=== PATIENT | female | born 1955 | race Caucasian/White ===

== ENCOUNTER 2018-11-04 14:05 | Inpatient (IN) | payer MEDICAID ==
[~2018-11-04] VITALS: Ht 167.6 cm; Wt 113.0 kg
[~2018-11-04 14:05] MED LIST: AMOX-422 PO; ARIP10TA8 PO; ASCO-134 PO; BENZ0.5T43 PO; BISA-78 PO; BUSP10TA11 PO; CALC-965 PO; CHOL2000 PO; CLON-528 PO; DULR RC; FENT1PAT7 TOP; HYDR-3686 PO; HYDR-3927 PO; IBUP-24 PO; IVER3TAB2 PO; LACT10SO PO; LAMO100T89 PO; LORA0.5T PO; LORA10TA7 PO; MAG400T PO; MULT1TAB74 PO; NEOM500T13 PO; PALI6TAB PO; POTA20TA19 PO; RIFA550T PO; SERT50TA10 PO; TAMO20TA4 PO; TEMA30CA5 PO; [UNRECOGNIZED DRUG - CODE] IM
[2018-11-04] MEDS ORDERED: normal saline 1000ML IV soln IVB ONE ×2 (14:45)
[2018-11-04] MEDS ORDERED: levoFLOXACIN-Levaquin 750MG/D5 150 ML IV ONE (14:45)
[2018-11-04] MEDS ORDERED: cefepime 1GM/NS ADD-VANTAGE 100 ML IV ONE (14:45)
[2018-11-04 15:48] LABS: ALANINE AMINOTRANSFERASE 42 U/L (12-78); ALBUMIN 2.1 G/DL (3.4-5.0); ALKALINE PHOSPHATASE 173 IU/L (46-116); ANION GAP 3 (8-16); CALCIUM 8.2 MG/DL (8.5-10.1); CHLORIDE 104 MMOL/L (99-107); CREATININE 0.99 MG/DL (0.40-0.90); SODIUM 137 MMOL/L (135-145); TOTAL CARBON DIOXIDE 29.9 MMOL/L (24-32); eGFR 56 ML/MIN
[2018-11-04 15:49] LABS: ALBUMIN/GLOBULIN RATIO 0.4 (1.1-1.5); ASPARTATE AMINO TRANSFERASE 77 U/L (10-37); BLOOD UREA NITROGEN 21 MG/DL (7-18); BUN/CREATININE RATIO 21.2 (6.6-38.0); GLUCOSE 139 MG/DL (70-104)
[2018-11-04 16:21] LABS: BASOPHILS % (AUTO) 0.2 % (0-1); EOSINOPHILS % (AUTO) 0.6 % (0-6); HEMATOCRIT 41.8 % (35.0-45.0); HEMOGLOBIN 14.7 g/dl (12.0-16.0); LYMPHOCYTES # (AUTO) 0.6 X10'3 (1.1-4.8); LYMPHOCYTES % (AUTO) 8.5 % (21-51); MEAN CORPUSCULAR HEMOGLOBIN 36.4 PG (27.0-31.0); MEAN CORPUSCULAR HGB CONC 35.2 g/dL (33.0-36.5); MEAN CORPUSCULAR VOLUME 103.5 FL (78-98); MEAN PLATELET VOLUME 8.9 FL (7.4-10.4); MONOCYTES # (AUTO) 0.5 X10'3 (0-0.9); MONOCYTES % (AUTO) 7.1 % (2-12); NEUTROPHILS # (AUTO) 5.8 X10'3 (1.8-7.7); NEUTROPHILS % (AUTO) 83.6 % (42-75); PLATELET COUNT 71 X10'3 (140-440); RED BLOOD COUNT 4.04 X10'6 (4.20-5.60); WHITE BLOOD COUNT 6.9 X10'3 (4.5-11.0)
[2018-11-04] MEDS ORDERED: mag hydrox/Alum hydrox/simeth 30ml oral suspension PO PRN (17:30)
[2018-11-04] MEDS ORDERED: ondansetron/PF 4mg/2ml inj IV PRN (17:30)
[2018-11-04] MEDS ORDERED: magnesium hydroxide 30ml (MOM) UD suspension PO PRN (17:30)
[2018-11-04] MEDS ORDERED: acetaminophen 325mg tablet PO PRN (17:30)
[2018-11-04] MEDS: normal saline 1000ml 1,000 ML IV SCH (17:54)
[2018-11-04] MEDS: ipratropium/albuterol 3ml nebule NEB SCH ×2 (19:02→23:32)
[2018-11-04] MEDS ORDERED: hydrOXYzine 25 MG tablet PO PRN (19:20)
[2018-11-04] MEDS ORDERED: bisacodyl 10mg suppository rectal RC PRN (19:20)
[2018-11-04 20:00] VITALS: BP 130/69
[2018-11-04] MEDS: cefepime 2g/NS 100ml ADVANTAGE 100 ML IV SCH (20:00)
[2018-11-04] MEDS ORDERED: heparin, porcine 5000 units/ml vial SQ SCH (20:00)
--- NOTE | 2018-11-04 20:00 | NUR ---
Patient in room [facility] 4023. I have received report from EDIN Morales and had the opportunity to ask questions and assume patient care.
[2018-11-04] MEDS: calcium carbonate/vitamin D3 tablet PO SCH (21:10)
[2018-11-04] MEDS: clonazePAM 0.5mg tablet PO SCH (21:10)
[2018-11-04] MEDS: rifaximin 550mg tablet PO SCH (21:11)
[2018-11-04] MEDS: busPIRone 5mg tablet PO SCH (21:11)
[2018-11-04] MEDS: potassium Cl 20 mEq SR tablet PO SCH (21:11)
[2018-11-04] MEDS: magnesium oxide 400mg tablet PO SCH (21:11)
[2018-11-04] MEDS: lactulose 20gm/30ml cup PO SCH (21:11)
[2018-11-04] MEDS: benztropine 1mg tablet PO SCH (21:12)
[2018-11-04] MEDS: lamoTRIgine 100mg tablet PO SCH (21:12)
[2018-11-04] MEDS: PALIPERIDONE 3 MG TAB.ER.24 PO SCH (21:13)
[2018-11-05] MEDS: ipratropium/albuterol 3ml nebule NEB SCH ×6 (03:26→23:00)
[2018-11-05] MEDS: normal saline 1000ml 1,000 ML IV SCH ×2 (03:29→15:38)
[2018-11-05 05:24] LABS: BASOPHILS % (AUTO) 0.3 % (0-1); EOSINOPHILS % (AUTO) 0.6 % (0-6); HEMATOCRIT 36.7 % (35.0-45.0); HEMOGLOBIN 12.9 g/dl (12.0-16.0); LYMPHOCYTES # (AUTO) 0.6 X10'3 (1.1-4.8); MEAN CORPUSCULAR HEMOGLOBIN 37.6 PG (27.0-31.0); MEAN CORPUSCULAR HGB CONC 35.2 g/dL (33.0-36.5); MEAN PLATELET VOLUME 10.2 FL (7.4-10.4); MONOCYTES # (AUTO) 0.3 X10'3 (0-0.9); MONOCYTES % (AUTO) 8.5 % (2-12); NEUTROPHILS # (AUTO) 2.5 X10'3 (1.8-7.7); NEUTROPHILS % (AUTO) 73.6 % (42-75); PLATELET COUNT 60 X10'3 (140-440); RED BLOOD COUNT 3.43 X10'6 (4.20-5.60); RED CELL DISTRIBUTION WIDTH 15.3 % (11.5-14.5); WHITE BLOOD COUNT 3.5 X10'3 (4.5-11.0)
[2018-11-05 05:56] LABS: SODIUM 141 MMOL/L (135-145)
[2018-11-05 05:57] LABS: ALBUMIN 1.7 G/DL (3.4-5.0); ANION GAP 5 (8-16); BLOOD UREA NITROGEN 15 MG/DL (7-18); CALCIUM 7.7 MG/DL (8.5-10.1); CHLORIDE 109 MMOL/L (99-107); CREATININE 0.88 MG/DL (0.40-0.90); eGFR 65 ML/MIN
[2018-11-05 05:59] LABS: GLUCOSE 88 MG/DL (70-104)
[2018-11-05 06:00] VITALS: BP 127/56
--- NOTE | 2018-11-05 06:05 | NUR ---
Problems reprioritized. Patient report given, questions answered & plan of care reviewed with EDIN Wallis.
--- NOTE | 2018-11-05 06:15 | NUR ---
Patient in room [facility] 4023. I have received report from Wendi JESUS and had the opportunity to ask questions and assume patient care.
[2018-11-05] MEDS: cefepime 2g/NS 100ml ADVANTAGE 100 ML IV SCH ×2 (08:55→20:46)
[2018-11-05] MEDS: calcium carbonate/vitamin D3 tablet PO SCH ×2 (08:57→20:45)
[2018-11-05] MEDS: aripiprazole 5mg tablet PO SCH (08:57)
[2018-11-05] MEDS: magnesium oxide 400mg tablet PO SCH ×2 (08:57→20:45)
[2018-11-05] MEDS: multivitamins, therapeutics tablet PO SCH (08:58)
[2018-11-05] MEDS: potassium Cl 20 mEq SR tablet PO SCH ×2 (08:58→20:45)
[2018-11-05] MEDS: sertraline 50mg tablet PO SCH (08:58)
[2018-11-05] MEDS: vitamin D (cholecalciferol) 1,000 unit tablet PO SCH (08:58)
[2018-11-05] MEDS: lactulose 20gm/30ml cup PO SCH ×3 (08:58→20:44)
[2018-11-05] MEDS: clonazePAM 0.5mg tablet PO SCH ×2 (08:58→20:44)
[2018-11-05] MEDS: busPIRone 5mg tablet PO SCH ×2 (08:58→20:45)
[2018-11-05] MEDS: rifaximin 550mg tablet PO SCH ×2 (08:59→20:45)
[2018-11-05] MEDS: PALIPERIDONE 3 MG TAB.ER.24 PO SCH ×2 (08:59→20:44)
[2018-11-05] MEDS: tamoxifen 10mg tablet PO SCH (09:00)
[2018-11-05] MEDS ORDERED: iohexol 300mg/ml 100ml inj. ONE (10:35)
--- NOTE | 2018-11-05 13:06 | NUR ---
Javed trigger: Javed Whitehead skin intact. Addendum: 11/05/18 at [address] Amended: Links added.
[2018-11-05 15:41] LABS: INR 1.9 INR; PROTHROMBIN TIME 18.4 SECONDS (9.0-12.0)
[2018-11-05 18:00] VITALS: BP 142/76
[2018-11-05] MEDS: lamoTRIgine 100mg tablet PO SCH (20:45)
[2018-11-05] MEDS: benztropine 1mg tablet PO SCH (20:45)
[2018-11-05 22:00] VITALS: BP 153/81
[2018-11-06] MEDS: ipratropium/albuterol 3ml nebule NEB SCH ×6 (03:00→23:03)
[2018-11-06] MEDS: normal saline 1000ml 1,000 ML IV SCH ×3 (03:11→21:15)
[2018-11-06 06:00] VITALS: BP 151/78
--- NOTE | 2018-11-06 06:24 | NUR ---
Problems reprioritized. Patient report given, questions answered & plan of care reviewed with feli Wallis.
[2018-11-06] MEDS ORDERED: VANCOMYCIN LEVEL IV NR (07:30)
[2018-11-06] MEDS: aripiprazole 5mg tablet PO SCH (07:46)
[2018-11-06] MEDS: calcium carbonate/vitamin D3 tablet PO SCH ×2 (07:46→21:01)
[2018-11-06] MEDS: magnesium oxide 400mg tablet PO SCH ×2 (07:47→21:01)
[2018-11-06] MEDS: busPIRone 5mg tablet PO SCH ×2 (07:47→21:01)
[2018-11-06] MEDS: multivitamins, therapeutics tablet PO SCH (07:47)
[2018-11-06] MEDS: vitamin D (cholecalciferol) 1,000 unit tablet PO SCH (07:47)
[2018-11-06] MEDS: clonazePAM 0.5mg tablet PO SCH ×2 (07:47→21:02)
[2018-11-06] MEDS: potassium Cl 20 mEq SR tablet PO SCH ×2 (07:48→21:01)
[2018-11-06] MEDS: rifaximin 550mg tablet PO SCH ×2 (07:48→21:02)
[2018-11-06] MEDS: sertraline 50mg tablet PO SCH (07:48)
[2018-11-06] MEDS: PALIPERIDONE 3 MG TAB.ER.24 PO SCH ×2 (07:48→21:03)
[2018-11-06] MEDS: tamoxifen 10mg tablet PO SCH (07:49)
[2018-11-06] MEDS: cefepime 2g/NS 100ml ADVANTAGE 100 ML IV SCH ×2 (07:49→20:59)
[2018-11-06] MEDS: lactulose 20gm/30ml cup PO SCH ×3 (07:49→21:03)
[2018-11-06 09:44] LABS: BASOPHILS % (AUTO) 0.3 % (0-1); HEMATOCRIT 36.6 % (35.0-45.0); HEMOGLOBIN 13.3 g/dl (12.0-16.0); LYMPHOCYTES # (AUTO) 0.3 X10'3 (1.1-4.8); LYMPHOCYTES % (AUTO) 15.5 % (21-51); MEAN CORPUSCULAR HEMOGLOBIN 39.4 PG (27.0-31.0); MEAN CORPUSCULAR HGB CONC 36.4 g/dL (33.0-36.5); MEAN CORPUSCULAR VOLUME 108.1 FL (78-98); MEAN PLATELET VOLUME 9.3 FL (7.4-10.4); MONOCYTES # (AUTO) 0.2 X10'3 (0-0.9); MONOCYTES % (AUTO) 10.9 % (2-12); NEUTROPHILS # (AUTO) 1.5 X10'3 (1.8-7.7); NEUTROPHILS % (AUTO) 72.3 % (42-75); PLATELET COUNT 52 X10'3 (140-440); RED BLOOD COUNT 3.39 X10'6 (4.20-5.60); RED CELL DISTRIBUTION WIDTH 14.9 % (11.5-14.5)
[2018-11-06 09:57] LABS: ALANINE AMINOTRANSFERASE 42 U/L (12-78); ALBUMIN 1.9 G/DL (3.4-5.0); ALBUMIN/GLOBULIN RATIO 0.4 (1.1-1.5); ALKALINE PHOSPHATASE 141 IU/L (46-116); ANION GAP 6 (8-16); ASPARTATE AMINO TRANSFERASE 75 U/L (10-37); BLOOD UREA NITROGEN 12 MG/DL (7-18); BUN/CREATININE RATIO 12.5 (6.6-38.0); CALCIUM 7.9 MG/DL (8.5-10.1); CHLORIDE 106 MMOL/L (99-107); CREATININE 0.96 MG/DL (0.40-0.90); POTASSIUM 3.4 MMOL/L (3.5-5.1); SODIUM 140 MMOL/L (135-145); TOTAL CARBON DIOXIDE 27.8 MMOL/L (24-32); TOTAL PROTEIN 7.2 G/DL (6.4-8.2); eGFR 59 ML/MIN
[2018-11-06 10:00] VITALS: BP 138/82
[2018-11-06 10:25] LABS: TOTAL CELLS COUNTED 100
[2018-11-06 10:26] LABS: PLATELET ESTIMATE DECREASED
[2018-11-06 10:30] LABS: GLUCOSE 176 MG/DL (70-104)
[2018-11-06 18:00] VITALS: BP 132/73
--- NOTE | 2018-11-06 19:11 | NUR ---
Student documentation: I have reviewed and agree with all interventions, assessments performed and documented by Selvin Barcenas
[2018-11-06] MEDS: lamoTRIgine 100mg tablet PO SCH (21:01)
[2018-11-06] MEDS: benztropine 1mg tablet PO SCH (21:09)
[2018-11-06 22:00] VITALS: BP 142/82
[2018-11-07] MEDS ORDERED: VANCOMYCIN LEVEL IV NR (02:30)
[2018-11-07] MEDS: ipratropium/albuterol 3ml nebule NEB SCH ×6 (02:57→23:15)
--- NOTE | 2018-11-07 04:33 | NUR ---
wasted fentanyl 25mcg patch with feli meza
--- NOTE | 2018-11-07 04:45 | NUR ---
wasted 25mcg fentanyl patch with Karolina Gaspar RN.
[2018-11-07 06:00] VITALS: BP 142/74
[2018-11-07] MEDS: lactulose 20gm/30ml cup PO SCH ×3 (08:00→21:08)
[2018-11-07] MEDS: potassium Cl 20 mEq SR tablet PO SCH ×2 (08:00→21:08)
[2018-11-07] MEDS: normal saline 1000ml 1,000 ML IV SCH ×3 (08:00→22:20)
[2018-11-07 08:51] LABS: ALBUMIN 1.7 G/DL (3.4-5.0); ANION GAP 5 (8-16); BLOOD UREA NITROGEN 10 MG/DL (7-18); BUN/CREATININE RATIO 11.9 (6.6-38.0); CALCIUM 7.8 MG/DL (8.5-10.1); CHLORIDE 109 MMOL/L (99-107); CREATININE 0.84 MG/DL (0.40-0.90); POTASSIUM 3.3 MMOL/L (3.5-5.1); SODIUM 142 MMOL/L (135-145); eGFR 68 ML/MIN
[2018-11-07 09:09] LABS: GLUCOSE 128 MG/DL (70-104)
[2018-11-07] MEDS: magnesium oxide 400mg tablet PO SCH ×2 (09:15→21:09)
[2018-11-07] MEDS: busPIRone 5mg tablet PO SCH ×2 (09:15→21:09)
[2018-11-07] MEDS: clonazePAM 0.5mg tablet PO SCH ×2 (09:15→21:08)
[2018-11-07] MEDS: vitamin D (cholecalciferol) 1,000 unit tablet PO SCH (09:15)
[2018-11-07 09:16] LABS: VANCOMYCIN,TROUGH 10.8 UG/ML (6.0-14.0)
[2018-11-07] MEDS: aripiprazole 5mg tablet PO SCH (09:16)
[2018-11-07] MEDS: sertraline 50mg tablet PO SCH (09:16)
[2018-11-07] MEDS: calcium carbonate/vitamin D3 tablet PO SCH ×2 (09:16→21:09)
[2018-11-07] MEDS: multivitamins, therapeutics tablet PO SCH (09:16)
[2018-11-07] MEDS: cefepime 2g/NS 100ml ADVANTAGE 100 ML IV SCH ×2 (09:17→21:06)
[2018-11-07 09:24] LABS: BASOPHILS % (AUTO) 0.7 % (0-1); EOSINOPHILS # (AUTO) 0.1 X10'3 (0-0.9); EOSINOPHILS % (AUTO) 2.8 % (0-6); HEMATOCRIT 37.5 % (35.0-45.0); HEMOGLOBIN 12.5 g/dl (12.0-16.0); LYMPHOCYTES # (AUTO) 0.6 X10'3 (1.1-4.8); LYMPHOCYTES % (AUTO) 20.6 % (21-51); MEAN CORPUSCULAR HEMOGLOBIN 34.4 PG (27.0-31.0); MEAN CORPUSCULAR HGB CONC 33.3 g/dL (33.0-36.5); MEAN PLATELET VOLUME 9.5 FL (7.4-10.4); MONOCYTES # (AUTO) 0.4 X10'3 (0-0.9); MONOCYTES % (AUTO) 12.5 % (2-12); NEUTROPHILS # (AUTO) 1.9 X10'3 (1.8-7.7); NEUTROPHILS % (AUTO) 63.4 % (42-75); PLATELET COUNT 62 X10'3 (140-440); RED BLOOD COUNT 3.63 X10'6 (4.20-5.60); RED CELL DISTRIBUTION WIDTH 14.6 % (11.5-14.5); WHITE BLOOD COUNT 2.9 X10'3 (4.5-11.0)
[2018-11-07 09:26] LABS: MEAN CORPUSCULAR VOLUME 103.1 FL (78-98)
[2018-11-07 09:43] LABS: PLATELET ESTIMATE DECREASED; TOTAL CELLS COUNTED 100
[2018-11-07] MEDS: rifaximin 550mg tablet PO SCH ×2 (10:18→21:09)
[2018-11-07] MEDS: PALIPERIDONE 3 MG TAB.ER.24 PO SCH ×2 (10:18→21:12)
[2018-11-07] MEDS: tamoxifen 10mg tablet PO SCH (10:19)
--- NOTE | 2018-11-07 14:16 | NUR ---
Extended PIV inserted to the left upper arm using ultrasound. Valdemar spear. Addendum: 11/07/18 at 1417 by Lindsay Adler RN Amended: Links added.
--- NOTE | 2018-11-07 16:00 | NUR ---
Paged hospitalist for potassium replacement. No orders received
[2018-11-07 18:00] VITALS: BP 162/81
--- NOTE | 2018-11-07 18:15 | NUR ---
Problems reprioritized. Patient report given, questions answered & plan of care reviewed with EDIN Hay.
--- NOTE | 2018-11-07 18:30 | NUR ---
Patient in room [facility] 4023. I have received report from EDIN SIFUENTES and had the opportunity to ask questions and assume patient care.
[2018-11-07] MEDS: benztropine 1mg tablet PO SCH (21:09)
[2018-11-07] MEDS: lamoTRIgine 100mg tablet PO SCH (21:09)
[2018-11-07 22:00] VITALS: BP 110/69
[2018-11-08] MEDS: ipratropium/albuterol 3ml nebule NEB SCH ×6 (03:00→23:52)
[2018-11-08 06:00] VITALS: BP 132/72
[2018-11-08 06:10] LABS: ALBUMIN 1.6 G/DL (3.4-5.0); ANION GAP 5 (8-16); BLOOD UREA NITROGEN 9 MG/DL (7-18); BUN/CREATININE RATIO 9.9 (6.6-38.0); CALCIUM 7.8 MG/DL (8.5-10.1); CHLORIDE 109 MMOL/L (99-107); CREATININE 0.91 MG/DL (0.40-0.90); POTASSIUM 3.2 MMOL/L (3.5-5.1); SODIUM 144 MMOL/L (135-145); TOTAL CARBON DIOXIDE 29.6 MMOL/L (24-32); eGFR 62 ML/MIN
[2018-11-08 06:12] LABS: GLUCOSE 70 MG/DL (70-104)
--- NOTE | 2018-11-08 06:48 | NUR ---
Problems reprioritized. Patient report given, questions answered & plan of care reviewed with EDIN MARTINES.
[2018-11-08 06:50] LABS: BASOPHILS % (AUTO) 0.6 % (0-1); EOSINOPHILS # (AUTO) 0.1 X10'3 (0-0.9); EOSINOPHILS % (AUTO) 2.6 % (0-6); HEMATOCRIT 35.3 % (35.0-45.0); LYMPHOCYTES # (AUTO) 0.6 X10'3 (1.1-4.8); LYMPHOCYTES % (AUTO) 21.1 % (21-51); MEAN CORPUSCULAR HEMOGLOBIN 34.9 PG (27.0-31.0); MEAN CORPUSCULAR HGB CONC 34.1 g/dL (33.0-36.5); MEAN PLATELET VOLUME 9.2 FL (7.4-10.4); MONOCYTES # (AUTO) 0.3 X10'3 (0-0.9); MONOCYTES % (AUTO) 12.3 % (2-12); NEUTROPHILS # (AUTO) 1.8 X10'3 (1.8-7.7); NEUTROPHILS % (AUTO) 63.4 % (42-75); PLATELET COUNT 57 X10'3 (140-440); RED BLOOD COUNT 3.45 X10'6 (4.20-5.60); RED CELL DISTRIBUTION WIDTH 15.1 % (11.5-14.5); WHITE BLOOD COUNT 2.8 X10'3 (4.5-11.0)
[2018-11-08 06:53] LABS: MEAN CORPUSCULAR VOLUME 102.3 FL (78-98)
[2018-11-08 07:01] LABS: PLATELET ESTIMATE DECREASED; TOTAL CELLS COUNTED 100
[2018-11-08 10:00] VITALS: BP 106/58
[2018-11-08] MEDS: potassium Cl 20 mEq SR tablet PO SCH ×2 (10:02→20:35)
[2018-11-08] MEDS: aripiprazole 5mg tablet PO SCH (10:02)
[2018-11-08] MEDS: clonazePAM 0.5mg tablet PO SCH ×2 (10:02→20:36)
[2018-11-08] MEDS: lactulose 20gm/30ml cup PO SCH ×3 (10:02→23:18)
[2018-11-08] MEDS: cefepime 2g/NS 100ml ADVANTAGE 100 ML IV SCH ×2 (10:02→20:35)
[2018-11-08] MEDS: busPIRone 5mg tablet PO SCH ×2 (10:02→20:35)
[2018-11-08] MEDS: PALIPERIDONE 3 MG TAB.ER.24 PO SCH ×2 (10:03→20:36)
[2018-11-08] MEDS: magnesium oxide 400mg tablet PO SCH ×2 (10:03→20:36)
[2018-11-08] MEDS: vitamin D (cholecalciferol) 1,000 unit tablet PO SCH (10:03)
[2018-11-08] MEDS: tamoxifen 10mg tablet PO SCH (10:03)
[2018-11-08] MEDS: calcium carbonate/vitamin D3 tablet PO SCH ×2 (10:03→20:36)
[2018-11-08] MEDS: multivitamins, therapeutics tablet PO SCH (10:03)
[2018-11-08] MEDS: rifaximin 550mg tablet PO SCH ×2 (10:03→20:36)
[2018-11-08] MEDS: sertraline 50mg tablet PO SCH (10:04)
[2018-11-08] MEDS: normal saline 1000ml 1,000 ML IV SCH (11:29)
[2018-11-08] MEDS: LORazepam 0.5 MG tablet PO PRN ×2 (13:50→23:18)
[2018-11-08] MEDS ORDERED: potassium Cl 20 mEq SR tablet PO STA (13:54)
[2018-11-08] MEDS ORDERED: potassium Cl 20 mEq SR tablet PO PRN ×2 (13:55)
[2018-11-08] MEDS ORDERED: magnesium Cl slow-release 64mg tablet PO PRN (13:55)
[2018-11-08] MEDS ORDERED: potassium Cl 40MEQ/NS 500ml 500 ML IV PRN ×2 (13:55)
[2018-11-08] MEDS: Potassium Cl inj 20 MEQ in normal saline 1000ml 990 ML IV SCH (16:00)
--- NOTE | 2018-11-08 16:52 | NUR ---
Student Medication Administration: For this medication-pass time frame, all medication were reviewed, dispensed, administered and documented per hospital policy by SN Fernanda.
[2018-11-08 18:00] VITALS: BP 146/79
[2018-11-08] MEDS ORDERED: VANCOMYCIN LEVEL IV NR (21:30)
[2018-11-08 22:00] VITALS: BP 148/79
[2018-11-08] MEDS: lamoTRIgine 100mg tablet PO SCH (22:02)
[2018-11-08] MEDS: benztropine 1mg tablet PO SCH (22:05)
[2018-11-09] MEDS: ipratropium/albuterol 3ml nebule NEB SCH ×6 (03:43→23:55)
[2018-11-09] MEDS: Potassium Cl inj 20 MEQ in normal saline 1000ml 990 ML IV SCH ×2 (04:13→07:35)
[2018-11-09 06:00] VITALS: BP 130/75
--- NOTE | 2018-11-09 06:00 | NUR ---
Patient in room [facility] 4023. I have received report from ROQUE JESUS and had the opportunity to ask questions and assume patient care.
[2018-11-09 06:11] LABS: ALBUMIN 1.7 G/DL (3.4-5.0); ANION GAP 4 (8-16); BLOOD UREA NITROGEN 10 MG/DL (7-18); CALCIUM 7.7 MG/DL (8.5-10.1); CHLORIDE 111 MMOL/L (99-107); CREATININE 0.83 MG/DL (0.40-0.90); POTASSIUM 3.4 MMOL/L (3.5-5.1); SODIUM 143 MMOL/L (135-145); TOTAL CARBON DIOXIDE 28.3 MMOL/L (24-32); eGFR 69 ML/MIN
[2018-11-09 06:12] LABS: GLUCOSE 98 MG/DL (70-104)
[2018-11-09 06:40] LABS: BASOPHILS % (AUTO) 0.3 % (0-1); EOSINOPHILS # (AUTO) 0.1 X10'3 (0-0.9); EOSINOPHILS % (AUTO) 2.5 % (0-6); HEMOGLOBIN 12.1 g/dl (12.0-16.0); LYMPHOCYTES # (AUTO) 0.5 X10'3 (1.1-4.8); LYMPHOCYTES % (AUTO) 15.8 % (21-51); MEAN CORPUSCULAR HEMOGLOBIN 34.5 PG (27.0-31.0); MEAN CORPUSCULAR HGB CONC 33.6 g/dL (33.0-36.5); MEAN CORPUSCULAR VOLUME 102.9 FL (78-98); MEAN PLATELET VOLUME 9.5 FL (7.4-10.4); MONOCYTES # (AUTO) 0.3 X10'3 (0-0.9); MONOCYTES % (AUTO) 10.4 % (2-12); PLATELET COUNT 61 X10'3 (140-440); RED CELL DISTRIBUTION WIDTH 14.7 % (11.5-14.5); WHITE BLOOD COUNT 2.9 X10'3 (4.5-11.0)
[2018-11-09] MEDS: cefepime 2g/NS 100ml ADVANTAGE 100 ML IV SCH ×2 (07:38→20:26)
[2018-11-09 07:43] LABS: TOTAL CELLS COUNTED 100
[2018-11-09 07:44] LABS: PLATELET ESTIMATE DECREASED
[2018-11-09] MEDS: vancomycin inj 1,250 MG in normal saline 250ml IV soln 250 ML IV SCH ×2 (09:41→21:59)
[2018-11-09] MEDS: PALIPERIDONE 3 MG TAB.ER.24 PO SCH ×2 (09:42→20:33)
[2018-11-09] MEDS: sertraline 50mg tablet PO SCH (09:42)
[2018-11-09] MEDS: busPIRone 5mg tablet PO SCH ×2 (09:42→20:27)
[2018-11-09] MEDS: calcium carbonate/vitamin D3 tablet PO SCH ×2 (09:42→20:26)
[2018-11-09] MEDS: aripiprazole 5mg tablet PO SCH (09:42)
[2018-11-09] MEDS: magnesium oxide 400mg tablet PO SCH ×2 (09:42→20:27)
[2018-11-09] MEDS: potassium Cl 20 mEq SR tablet PO SCH ×2 (09:42→20:27)
[2018-11-09] MEDS: clonazePAM 0.5mg tablet PO SCH ×2 (09:42→20:27)
[2018-11-09] MEDS: vitamin D (cholecalciferol) 1,000 unit tablet PO SCH (09:42)
[2018-11-09] MEDS: rifaximin 550mg tablet PO SCH ×2 (09:42→20:26)
[2018-11-09] MEDS: lactulose 20gm/30ml cup PO SCH ×3 (09:42→20:26)
[2018-11-09] MEDS: multivitamins, therapeutics tablet PO SCH (09:42)
[2018-11-09] MEDS: tamoxifen 10mg tablet PO SCH (09:43)
[2018-11-09 10:00] VITALS: BP 108/64
--- NOTE | 2018-11-09 10:08 | NUR ---
Initial: Pt admit with multilobar PNA. Per MD progress notes pt slowly improving and continues IV abx for tx. Pt currently on pureed diet with fluctuating PO intake with recent average 75% likely closely meeting nutrient needs. Pt documented as confused and A/O x1, this could be contributing to the fluctuations in PO intake. LBM 11/08. No edema or wounds. Will continue to follow and monitor need for ONS. Recommendations: 1) Continue pureed diet; monitor appropriateness for diet advancement 2) Monitor need for ONS 3) Wt per rx Addendum: 11/09/18 at [address] Amended: Links added.
[2018-11-09 18:00] VITALS: BP 140/90
--- NOTE | 2018-11-09 18:20 | NUR ---
Problems reprioritized. Patient report given, questions answered & plan of care reviewed with HO JESUS.
--- NOTE | 2018-11-09 18:30 | NUR ---
Patient in room [facility] 4023. I have received report from EDIN Randall and had the opportunity to ask questions and assume patient care.
[2018-11-09] MEDS: benztropine 1mg tablet PO SCH (20:26)
[2018-11-09] MEDS: lamoTRIgine 100mg tablet PO SCH (20:27)
[2018-11-09] MEDS: LORazepam 0.5 MG tablet PO PRN (21:59)
[2018-11-09 22:00] VITALS: BP 113/70
[2018-11-10] MEDS: Potassium Cl inj 20 MEQ in normal saline 1000ml 990 ML IV SCH (03:47)
[2018-11-10] MEDS: ipratropium/albuterol 3ml nebule NEB SCH ×6 (03:48→23:26)
[2018-11-10 05:29] LABS: ALBUMIN 1.7 G/DL (3.4-5.0); ANION GAP 4 (8-16); BLOOD UREA NITROGEN 11 MG/DL (7-18); BUN/CREATININE RATIO 12.9 (6.6-38.0); CALCIUM 7.8 MG/DL (8.5-10.1); CHLORIDE 110 MMOL/L (99-107); CREATININE 0.85 MG/DL (0.40-0.90); GLUCOSE 82 MG/DL (70-104); POTASSIUM 3.8 MMOL/L (3.5-5.1); SODIUM 142 MMOL/L (135-145); TOTAL CARBON DIOXIDE 27.6 MMOL/L (24-32); eGFR 67 ML/MIN
[2018-11-10 06:00] VITALS: BP 136/62
--- NOTE | 2018-11-10 06:34 | NUR ---
Problems reprioritized. Patient report given, questions answered & plan of care reviewed with EDIN Diana.
[2018-11-10 07:32] LABS: MAGNESIUM 1.6 MG/DL (1.5-2.4)
[2018-11-10] MEDS: cefepime 2g/NS 100ml ADVANTAGE 100 ML IV SCH ×2 (09:11→20:35)
[2018-11-10] MEDS: lactulose 20gm/30ml cup PO SCH ×4 (09:11→20:48)
[2018-11-10] MEDS: magnesium oxide 400mg tablet PO SCH ×2 (09:12→20:38)
[2018-11-10] MEDS: vitamin D (cholecalciferol) 1,000 unit tablet PO SCH (09:12)
[2018-11-10] MEDS: rifaximin 550mg tablet PO SCH ×2 (09:12→20:38)
[2018-11-10] MEDS: aripiprazole 5mg tablet PO SCH (09:12)
[2018-11-10] MEDS: sertraline 50mg tablet PO SCH (09:12)
[2018-11-10] MEDS: calcium carbonate/vitamin D3 tablet PO SCH ×2 (09:13→20:38)
[2018-11-10] MEDS: multivitamins, therapeutics tablet PO SCH (09:13)
[2018-11-10] MEDS: potassium Cl 20 mEq SR tablet PO SCH ×2 (09:13→20:38)
[2018-11-10] MEDS: PALIPERIDONE 3 MG TAB.ER.24 PO SCH ×2 (09:13→20:38)
[2018-11-10] MEDS: busPIRone 5mg tablet PO SCH ×2 (09:13→20:38)
[2018-11-10] MEDS: tamoxifen 10mg tablet PO SCH (09:14)
[2018-11-10] MEDS: clonazePAM 0.5mg tablet PO SCH ×2 (09:14→20:38)
[2018-11-10 10:00] VITALS: BP 98/61
[2018-11-10] MEDS: vancomycin inj 1,250 MG in normal saline 250ml IV soln 250 ML IV SCH ×2 (12:00→22:00)
[2018-11-10 18:00] VITALS: BP 129/75
--- NOTE | 2018-11-10 18:20 | NUR ---
Patient in room [facility] 4023. I have received report from EDIN Galeas and had the opportunity to ask questions and assume patient care.
[2018-11-10] MEDS: benztropine 1mg tablet PO SCH (20:37)
[2018-11-10] MEDS: lamoTRIgine 100mg tablet PO SCH (20:37)
[2018-11-10] MEDS: lactobacillus rhamnosus 10,000 MMU CELLS/CAPSULE PO SCH (20:38)
[2018-11-10] MEDS ORDERED: VANCOMYCIN LEVEL IV NR (21:30)
[2018-11-10 22:00] VITALS: BP 127/64
[2018-11-11] MEDS: LORazepam 0.5 MG tablet PO PRN (00:31)
[2018-11-11] MEDS: Potassium Cl inj 20 MEQ in normal saline 1000ml 990 ML IV SCH ×2 (01:11→13:25)
[2018-11-11] MEDS: ipratropium/albuterol 3ml nebule NEB SCH ×3 (02:52→11:06)
[2018-11-11 06:00] VITALS: BP 134/70
--- NOTE | 2018-11-11 06:30 | NUR ---
Patient in room [facility] 4023. I have received report from Wendi JESUS and had the opportunity to ask questions and assume patient care.
--- NOTE | 2018-11-11 06:37 | NUR ---
Problems reprioritized. Patient report given, questions answered & plan of care reviewed with EDIN Latham.
[2018-11-11] MEDS: potassium Cl 20 mEq SR tablet PO SCH (09:42)
[2018-11-11] MEDS: rifaximin 550mg tablet PO SCH (09:42)
[2018-11-11] MEDS: PALIPERIDONE 3 MG TAB.ER.24 PO SCH (09:42)
[2018-11-11] MEDS: cefepime 2g/NS 100ml ADVANTAGE 100 ML IV SCH (09:42)
[2018-11-11] MEDS: sertraline 50mg tablet PO SCH (09:42)
[2018-11-11] MEDS: vitamin D (cholecalciferol) 1,000 unit tablet PO SCH (09:42)
[2018-11-11] MEDS: multivitamins, therapeutics tablet PO SCH (09:42)
[2018-11-11] MEDS: lactulose 20gm/30ml cup PO SCH ×2 (09:43→13:00)
[2018-11-11] MEDS: busPIRone 5mg tablet PO SCH (09:43)
[2018-11-11] MEDS: aripiprazole 5mg tablet PO SCH (09:43)
[2018-11-11] MEDS: magnesium oxide 400mg tablet PO SCH (09:43)
[2018-11-11] MEDS: lactobacillus rhamnosus 10,000 MMU CELLS/CAPSULE PO SCH (09:43)
[2018-11-11] MEDS: clonazePAM 0.5mg tablet PO SCH (09:49)
[2018-11-11] MEDS: calcium carbonate/vitamin D3 tablet PO SCH (09:49)
[2018-11-11] MEDS: tamoxifen 10mg tablet PO SCH (09:53)
[2018-11-11 10:00] VITALS: BP 125/67
[2018-11-11] MEDS ORDERED: vancomycin/NS 1 GM ADD-VANTAGE 250 ML IV SCH (10:00)
[2018-11-11] MEDS ORDERED: AMOX-422 PO (12:23)
--- NOTE | 2018-11-11 14:26 | NUR ---
Problems reprioritized. Patient report given, questions answered & plan of care reviewed with nurse Riana at [place].
[2018-11-12] MEDS ORDERED: VANCOMYCIN LEVEL IV ONE (21:30)
== END 2018-11-11 15:54 | DRG 720 ==
LOC: ER 14:06 → ED HOLD 17:29 → ORTHO 4S 19:47
PROVIDERS: ADMIT Family Medicine; ATTEND Family Medicine
PROC: BW241ZZ Computerized Tomography (CT Scan) of Chest and Abdomen using Low Osmolar Contrast (ICD-10-PCS; principal; 2018-11-05)
DX: A41.9 Sepsis, unspecified organism (principal); E43 Unspecified severe protein-calorie malnutrition; N17.9 Acute kidney failure, unspecified; J18.1 Lobar pneumonia, unspecified organism; D68.9 Coagulation defect, unspecified; R18.8 Other ascites; F03.90 Unspecified dementia, unspecified severity, without behavioral disturbance, psychotic disturbance, mood disturbance, and anxiety; F20.0 Paranoid schizophrenia; K72.90 Hepatic failure, unspecified without coma; E11.9 Type 2 diabetes mellitus without complications; D69.59 Other secondary thrombocytopenia; T43.95XA Adverse effect of unspecified psychotropic drug, initial encounter; B19.20 Unspecified viral hepatitis C without hepatic coma; K74.60 Unspecified cirrhosis of liver; E87.6 Hypokalemia; Z60.2 Problems related to living alone; F32.9 Major depressive disorder, single episode, unspecified; J44.0 Chronic obstructive pulmonary disease with (acute) lower respiratory infection; M81.0 Age-related osteoporosis without current pathological fracture; Z85.3 Personal history of malignant neoplasm of breast; Z90.710 Acquired absence of both cervix and uterus; Z88.2 Allergy status to sulfonamides; Z88.8 Allergy status to other drugs, medicaments and biological substances; Z90.49 Acquired absence of other specified parts of digestive tract; Z68.41 Body mass index [BMI] 40.0-44.9, adult; Y92.89 Other specified places as the place of occurrence of the external cause
CPT/HCPCS: 36415; 71045; 71260; 80048; 80053; 80202; 82140; 83605; 83735; 85025; 85610; 87040; 87070; 93005; 94640; 94760; 96365; 96368; 97110; 97116; 97162; 97530; 99285; G0378; J0692; J1956; J3370; J3480; J7030; Q9967